=== PATIENT | female | born 1955 | race African-American/Black ===

== ENCOUNTER 2019-11-03 06:55 | Day surgery (SDC) | payer MEDICARE, OTHER ==
[~2019-11-03] VITALS: Ht 157.5 cm; Wt 70.0 kg
[~2019-11-03 06:55] MED LIST: ASPI-825 PO; CARB200T6 PO; DIPH25CA85 PO; LISI20TA PO; SODIUM CHLORIDE 0.9% 1,000 ML ONE
[2019-11-03] MEDS ORDERED: SODIUM CHLORIDE 0.9% 1,000 ML IV ONE (07:00)
[2019-11-03 08:08] LABS: GLUCOMETER DEV NAME(LOC) SDS.; GLUCOSE,POINT OF CARE 158 MG/DL (70-110)
[2019-11-03] MEDS ORDERED: HYDR-1475 PO (08:22)
[2019-11-03] MEDS ORDERED: AMIT10TA6 PO (08:22)
[2019-11-03] MEDS ORDERED: ATOR40TA28 PO (08:22)
[2019-11-03] MEDS ORDERED: LISI-661 PO (08:22)
[2019-11-03] MEDS ORDERED: AMLO10TA7 PO (08:22)
[2019-11-03] MEDS ORDERED: GLIP5 PO (08:22)
[2019-11-03] MEDS ORDERED: LEVE500S9 PO (08:22)
[2019-11-03] MEDS ORDERED: [UNRECOGNIZED DRUG - CODE] PO (08:26)
[2019-11-03] MEDS ORDERED: HYDR25TA82 PO (08:26)
[2019-11-03] MEDS ORDERED: BACL10TA PO (08:26)
[2019-11-03] MEDS ORDERED: ONDANSETRON HCL 4 MG/2 ML VIAL IVP ONE (10:15)
[2019-11-03] MEDS ORDERED: LIDOCAINE/PF 2% 5 ML SYRINGE IVP ONE (12:00)
[2019-11-03] MEDS ORDERED: PROPOFOL 1% 20 ML VIAL IVP ONE (12:00)
== END 2019-11-03 10:35 | disposition home or self-care (01) ==
LOC: SURGERY 06:55
PROVIDERS: ATTEND Internal Medicine Gastroenterology
DX: K92.1 Melena (principal); K29.50 Unspecified chronic gastritis without bleeding; K44.9 Diaphragmatic hernia without obstruction or gangrene; K57.30 Diverticulosis of large intestine without perforation or abscess without bleeding; K64.8 Other hemorrhoids; K64.4 Residual hemorrhoidal skin tags; J45.909 Unspecified asthma, uncomplicated; I50.9 Heart failure, unspecified; B96.89 Other specified bacterial agents as the cause of diseases classified elsewhere; Z88.0 Allergy status to penicillin; Z88.8 Allergy status to other drugs, medicaments and biological substances; Z88.5 Allergy status to narcotic agent; Z91.040 Latex allergy status; Z79.899 Other long term (current) drug therapy
CPT/HCPCS: 43239; 45378; 82962; 88305; 88312; 88313; C1769; J2405; J2704; J3490; J7030

== ENCOUNTER 2021-09-19 10:56 | Emergency (ER) | payer MEDICARE, OTHER ==
[~2021-09-19] VITALS: Ht 154.9 cm; Wt 54.5 kg
[~2021-09-19 10:56] MED LIST changes: +AMIT-166 PO; +AMLO-258 PO; -ASPI-825 PO; +ATOR40TA28 PO; +BACL10TA PO; -CARB200T6 PO; -DIPH25CA85 PO; +GLIP5 PO; +HYDR25TA2 PO; +HYDR25TA82 PO; +LEVE500S9 PO; +LISI-893 PO; -LISI20TA PO; -SODIUM CHLORIDE 0.9% 1,000 ML ONE; +[UNRECOGNIZED DRUG - CODE] PO
[2021-09-19 11:03] VITALS: BP 197/117
[2021-09-19] MEDS ORDERED: BUPIVACAINE HCL/PF 0.25% 10 ML VIAL SQ ONE (11:45)
[2021-09-19] MEDS ORDERED: LIDOCAINE 1% 10 ML VIAL SQ ONE (11:45)
[2021-09-19] MEDS ORDERED: DOXYCYCLINE HYCLATE 100 MG TABLET PO ONE (11:45)
[2021-09-19] MEDS: IBUPROFEN 800 MG TABLET PO ONE ×2 (11:52→11:55)
== END 2021-09-19 12:37 | disposition home or self-care (01) ==
LOC: EMS 10:59
DX: L03.011 Cellulitis of right finger (principal); I10 Essential (primary) hypertension; E11.9 Type 2 diabetes mellitus without complications; I25.2 Old myocardial infarction; F12.90 Cannabis use, unspecified, uncomplicated; Z88.0 Allergy status to penicillin; Z91.040 Latex allergy status; Z88.5 Allergy status to narcotic agent
CPT/HCPCS: 10060; 99283; J3490 ×2

== ENCOUNTER 2021-09-21 07:22 | Emergency (ER) | payer MEDICARE, OTHER ==
[~2021-09-21] VITALS: Ht 154.9 cm; Wt 6.8 kg
[2021-09-21 07:37] VITALS: BP 171/84
== END 2021-09-21 08:24 | disposition home or self-care (01) ==
LOC: EMS 07:32
DX: G89.29 Other chronic pain (principal); M25.532 Pain in left wrist; Z48.00 Encounter for change or removal of nonsurgical wound dressing; I10 Essential (primary) hypertension; E11.9 Type 2 diabetes mellitus without complications; I25.2 Old myocardial infarction; F12.90 Cannabis use, unspecified, uncomplicated; F17.210 Nicotine dependence, cigarettes, uncomplicated; Z88.0 Allergy status to penicillin; Z88.5 Allergy status to narcotic agent; Z88.8 Allergy status to other drugs, medicaments and biological substances; Z79.899 Other long term (current) drug therapy
CPT/HCPCS: 99282; Z7502

== ENCOUNTER 2021-09-25 16:10 | Emergency (ER) | payer MEDICARE, OTHER ==
[~2021-09-25] VITALS: Ht 154.9 cm; Wt 52.3 kg
[2021-09-25] MEDS ORDERED: AmLODIPine BESYLATE 5 MG TABLET PO ONE (16:45)
[2021-09-25 18:39] LABS: BASOPHILS % (AUTO) 2.4 % (0.0-2.0); EOSINOPHILS % (AUTO) 2.2 % (1.0-6.0); HEMATOCRIT 38.2 % (36-46); HEMOGLOBIN 12.6 g/dL (12.0-16.0); LYMPHOCYTES # (AUTO) 2.5 K/uL (1.0-4.8); LYMPHOCYTES % (AUTO) 53.2 % (22.0-44.0); MEAN CORPUSCULAR HEMOGLOBIN 28.1 pg (26.0-34.0); MEAN CORPUSCULAR HGB CONC 32.9 G/dL (31.0-37.0); MEAN CORPUSCULAR VOLUME 85 fL (80-100); MONOCYTES # (AUTO) 0.4 K/uL (0.1-1.0); MONOCYTES % (AUTO) 9.4 % (2.0-9.0); NEUTROPHILS # (AUTO) 1.6 K/uL (1.8-7.7); NEUTROPHILS % (AUTO) 32.8 % (40.0-70.0); PLATELET COUNT (AUTO) 321 K/uL (150-450); RED BLOOD CELL COUNT(AUTO) 4.48 MIL/uL (4.00-5.20); RED CELL DISTRIBUTION WIDTH 13.9 % (11.5-14.5)
[2021-09-25 18:48] LABS: ANION GAP 8 mmol/L (8-16); CALCIUM, TOTAL 10.2 mg/dL (8.8-10.5); CARBON DIOXIDE 31 mmol/L (22-29); CHLORIDE 107 mmol/L (98-107); GLOMERULAR FILTR. RATE CALC > 60 mL/min (>60); GLUCOSE,RANDOM 109 mg/dL (70-110); POTASSIUM 3.7 mmol/L (3.5-5.1); SODIUM SERUM 146 mmol/L (136-145); UREA NITROGEN, BLOOD 14 mg/dL (7-18)
[2021-09-25 18:54] LABS: ALANINE AMINOTRANSFERASE 44 U/L (12-78); ALBUMIN 3.8 g/dL (3.4-5.0); ALKALINE PHOSPHATASE 126 U/L (46-116); ASPARTATE AMINOTRANSFERASE 26 U/L (15-37); BILIRUBIN,TOTAL 0.3 mg/dL (0.1-1.0)
[2021-09-25 19:26] VITALS: BP 211/101
== END 2021-09-25 19:45 | disposition home or self-care (01) ==
LOC: EMS 16:13
DX: I82.611 Acute embolism and thrombosis of superficial veins of right upper extremity (principal); I10 Essential (primary) hypertension; E11.9 Type 2 diabetes mellitus without complications; I25.2 Old myocardial infarction; G43.909 Migraine, unspecified, not intractable, without status migrainosus; F17.210 Nicotine dependence, cigarettes, uncomplicated; F12.90 Cannabis use, unspecified, uncomplicated; Z86.73 Personal history of transient ischemic attack (TIA), and cerebral infarction without residual deficits; Z79.899 Other long term (current) drug therapy; Z88.6 Allergy status to analgesic agent; Z88.0 Allergy status to penicillin; Z88.5 Allergy status to narcotic agent; Z91.040 Latex allergy status
CPT/HCPCS: 76881; 80053; 85025; 93971; 99284; 99285

== ENCOUNTER 2025-05-04 20:14 | Emergency (ER) | payer MEDICARE, OTHER ==
[~2025-05-04] VITALS: Ht 154.9 cm; Wt 72.7 kg
[~2025-05-04 20:14] MED LIST changes: -AMIT-166 PO; -AMLO-258 PO; -ATOR40TA28 PO; -BACL10TA PO; +CHOL25TA4 PO; +DOCU-385 PO; +DULO20CA57 PO; +GABA-1181 PO; -GLIP5 PO; +GLIP5TAB16 PO; -HYDR25TA2 PO; -HYDR25TA82 PO; -LEVE500S9 PO; +LIRA0.6P2 SQ; +LISI-663 PO; -LISI-893 PO; +OMEP10CA5 PO; +ROSU20TA98 PO; +SENN-376 PO; +TOPI-97 PO; -[UNRECOGNIZED DRUG - CODE] PO
[2025-05-04 20:35] LABS: COVID AG,FIA SOURCE NASAL SWAB
[2025-05-04 21:28] LABS: SARS-COV2 (COVID) ANTIGEN,FIA Negative (Negative)
[2025-05-04 21:29] LABS: INFLUENZA TYPE A NEGATIVE FOR TYPE A (NEGATIVE); INFLUENZA TYPE B NEGATIVE FOR TYPE B (NEGATIVE)
[2025-05-04] MEDS: BENZONATATE 100 MG CAPSULE PO ONE (23:31)
[2025-05-04] MEDS: KETOROLAC TROMETHAMINE 30 MG/ML VIAL IM ONE (23:31)
[2025-05-05] MEDS ORDERED: BENZ-227 PO (00:07)
[2025-05-05 00:25] VITALS: BP 119/77; PULSE 71; RESP 16; TEMP 97.3; O2SAT 98
== END 2025-05-05 00:30 | disposition home or self-care (01) ==
LOC: EMS 20:14
DX: J06.9 Acute upper respiratory infection, unspecified (principal); R05.9 Cough, unspecified; B97.89 Other viral agents as the cause of diseases classified elsewhere; M19.90 Unspecified osteoarthritis, unspecified site; E11.9 Type 2 diabetes mellitus without complications; G43.909 Migraine, unspecified, not intractable, without status migrainosus; I11.0 Hypertensive heart disease with heart failure; I50.9 Heart failure, unspecified; Z88.5 Allergy status to narcotic agent; Z88.0 Allergy status to penicillin; Z86.73 Personal history of transient ischemic attack (TIA), and cerebral infarction without residual deficits; Z79.85 Long-term (current) use of injectable non-insulin antidiabetic drugs; Z79.899 Other long term (current) drug therapy; Z98.890 Other specified postprocedural states; Z20.822 Contact with and (suspected) exposure to COVID-19
CPT/HCPCS: 99284; 71045; 87426; 87804; 96372; J1885